=== PATIENT | male | born 1950 | race Caucasian/White ===

== ENCOUNTER 2022-10-12 04:17 | Day surgery (SDC) | payer OTHER, MEDICARE ==
[2022-10-11 11:46] VITALS: BMI 24.3
[2022-10-12 11:56] VITALS: TEMP 98
[2022-10-12 12:40] VITALS: BP 110/68; PULSE 72; RESP 22
== END 2022-10-12 12:40 | disposition home or self-care (01) ==
LOC: JASU-ENDO 04:17
PROVIDERS: ATTEND Internal Medicine Gastroenterology
PROC: 0DBL8ZX Excision of Transverse Colon, Via Natural or Artificial Opening Endoscopic, Diagnostic (ICD-10-PCS; 2022-10-12)
PROC: 0DBK8ZX Excision of Ascending Colon, Via Natural or Artificial Opening Endoscopic, Diagnostic (ICD-10-PCS; principal; 2022-10-12 11:00)
DX: Z12.11 Encounter for screening for malignant neoplasm of colon (principal); D12.2 Benign neoplasm of ascending colon; D12.3 Benign neoplasm of transverse colon; Z85.038 Personal history of other malignant neoplasm of large intestine; Z86.010 Personal history of colon polyps
CPT/HCPCS: 88305-TC